=== PATIENT | male | born 1945 | race Two or more races ===

== ENCOUNTER 2017-09-20 09:43 | Outpatient (CLI) | payer OTHER | END 2017-09-20 09:53 | disposition home or self-care (01) | LOC: RAD 501 09:43 | DX: D07.5 Carcinoma in situ of prostate (principal); M54.5 Low back pain ==

== ENCOUNTER 2017-12-11 09:23 | Outpatient (CLI) | payer OTHER | END 2017-12-11 09:49 | disposition home or self-care (01) | LOC: TOM 09:23 | DX: G91.2 (Idiopathic) normal pressure hydrocephalus (principal) ==

== ENCOUNTER 2018-02-21 14:02 | Outpatient (CLI) | payer OTHER | END 2018-02-21 15:41 | disposition home or self-care (01) | LOC: RAD 501 14:02 | DX: M25.551 Pain in right hip (principal); D07.5 Carcinoma in situ of prostate ==

== ENCOUNTER 2018-11-23 09:17 | Outpatient (CLI) | payer OTHER | END 2018-11-23 09:56 | disposition home or self-care (01) | LOC: MRI 09:17 | DX: M48.00 Spinal stenosis, site unspecified (principal) | CPT/HCPCS: 72148 ==

== ENCOUNTER 2018-11-26 10:15 | Outpatient (CLI) | payer OTHER | END 2018-11-26 11:29 | disposition home or self-care (01) | LOC: LAB 10:15 | DX: R10.9 Unspecified abdominal pain (principal); Z51.81 Encounter for therapeutic drug level monitoring ==

== ENCOUNTER 2018-11-29 08:07 | Outpatient (CLI) | payer OTHER | END 2018-11-29 17:00 | disposition home or self-care (01) | LOC: TOM 08:07 | DX: C61 Malignant neoplasm of prostate (principal); R10.84 Generalized abdominal pain | CPT/HCPCS: 74177; Q9965 ==